=== PATIENT | female | born 1955 | race Caucasian/White ===

== ENCOUNTER 2016-12-25 08:47 | Day surgery (SDC) | payer OTHER ==
[~2016-12-25 08:47] MED LIST: ACETAMINOPHEN 325 MG TABLET PO PRN; ACETYLCHOLINE CHLORIDE 20 DROP KIT IO PRN; BUPIVACAINE HCL/PF 30 ML VIAL IJ PRN; CYCLOPENTOLATE HCL 20 DROP BTL LEFTEYE PRN; DEXTROSE 5%-0.5 NORMAL SALINE 1,000 ML IV PRN; EPINEPHrine 1 MG/ML AMPUL IO PRN; HYALURONATE SODIUM 0.4 ML DISP.SYRIN IO PRN; HYALURONATE SODIUM 0.85 ML DISP.SYRIN IO PRN; LIDOCAINE HCL/PF 200 MG/5 ML AMPUL TP PRN; LIDOCAINE HCL/PF 5 ML VIAL IO PRN; NORMAL SALINE 3 ML BOX IV PRN; TETRACAINE HCL 150 DROP BTL OP PRN
[2016-12-25] MEDS: PHENYLEPHRINE HCL 50 DROP BTL LEFTEYE PRN ×3 (09:20→09:47)
[2016-12-25] MEDS: TROPICAMIDE 150 DROP BTL LEFTEYE PRN ×3 (09:20→09:47)
[2016-12-25 11:20] VITALS: BP 128/74
== END 2016-12-25 08:48 | disposition home or self-care (01) ==
LOC: AMB 08:47
PROVIDERS: ATTEND Ophthalmology
PROC: 08RK3JZ Replacement of Left Lens with Synthetic Substitute, Percutaneous Approach (ICD-10-PCS; principal; 2016-12-25 10:15)
DX: H26.9 Unspecified cataract (principal); I10 Essential (primary) hypertension; E03.9 Hypothyroidism, unspecified; F17.200 Nicotine dependence, unspecified, uncomplicated; Z68.27 Body mass index [BMI] 27.0-27.9, adult

== ENCOUNTER 2017-01-08 08:31 | Day surgery (SDC) | payer OTHER ==
[~2017-01-08 08:31] MED LIST changes: -CYCLOPENTOLATE HCL 20 DROP BTL LEFTEYE PRN; +CYCLOPENTOLATE HCL 20 DROP BTL RIGHTEYE PRN
[2017-01-08] MEDS: TROPICAMIDE 150 DROP BTL RIGHTEYE PRN ×3 (09:30→10:07)
[2017-01-08] MEDS: PHENYLEPHRINE HCL 50 DROP BTL RIGHTEYE PRN ×3 (09:30→10:07)
[2017-01-08] MEDS ORDERED: DEXTROSE 5%-0.5 NORMAL SALINE 1,000 ML IV ONE (09:52)
[2017-01-08 14:14] VITALS: BP 125/56
== END 2017-01-08 08:32 | disposition home or self-care (01) ==
LOC: AMB 08:31
PROVIDERS: ATTEND Ophthalmology
PROC: 08RJ3JZ Replacement of Right Lens with Synthetic Substitute, Percutaneous Approach (ICD-10-PCS; principal; 2017-01-08 10:00)
DX: H26.8 Other specified cataract (principal); I10 Essential (primary) hypertension; E03.9 Hypothyroidism, unspecified; F17.200 Nicotine dependence, unspecified, uncomplicated; Z68.27 Body mass index [BMI] 27.0-27.9, adult